=== PATIENT | male | born 1985 | race Two or more races ===

== ENCOUNTER 2019-03-28 01:57 | Emergency (ER) | payer OTHER ==
[~2019-03-28] VITALS: Ht 177.8 cm; Wt 108.9 kg
--- NOTE | 2019-03-28 02:15 | NUR ---
Patient ambulating with steady gait. A&O x4. c/o anxiety and panick attack that started "a few hours" SHRINKER. patient states he is having a bit of chest discomfort but none at this moment. Patient states that he took Valium 5mg 30 mins SHRINKER. smoked marijuana and drank a can of white claw 2 hours SHRINKER. Breathing even and unlabored. Denies any cough or SOB. denies any / GI discomfort. Speech is clear and able to make needs known / follow commands.
[2019-03-28] MEDS ORDERED: IV NORMAL SALINE 1000 ML BAG IV ONE (02:30)
--- NOTE | 2019-03-28 02:45 | NUR ---
Dr. Duncan at bedside for MSE
[2019-03-28 03:09] LABS: BASOPHILS # (AUTO) 0.1 K/uL (0.0-8.0); BASOPHILS % (AUTO) 0.7 % (0.0-2.0); EOSINOPHILS # (AUTO) 0.1 K/uL (0.0-0.7); EOSINOPHILS % (AUTO) 0.4 % (0.0-7.0); HEMATOCRIT 43.2 % (36.7-47.1); HEMOGLOBIN 15.2 g/dL (12.5-16.3); LYMPHOCYTES # (AUTO) 1.7 K/uL (20.0-40.0); LYMPHOCYTES % (AUTO) 11.7 % (20.5-51.5); MEAN CORPUSCULAR HEMOGLOBIN 31.3 uug (23.8-33.4); MEAN CORPUSCULAR HGB CONC 35 g/dL (32.5-36.3); MEAN CORPUSCULAR VOLUME 88.9 fL (73.0-96.2); MONOCYTES # (AUTO) 1.1 K/uL (2.0-10.0); NEUTROPHILS # (AUTO) 11.3 K/uL (1.8-8.9); NEUTROPHILS % (AUTO) 79.2 % (38.5-71.5); PLATELET COUNT (AUTO) 250 K/uL (152-348); RED BLOOD CELL COUNT(AUTO) 4.86 MIL/uL (4.06-5.63); WHITE BLOOD COUNT (AUTO) 14.2 K/uL (3.6-10.2)
[2019-03-28 03:24] LABS: BILIRUBIN,DIRECT 0.1 mg/dL (0.0-0.2); BILIRUBIN,TOTAL 0.3 mg/dL (0.2-1.0); POTASSIUM 3.8 mmol/L (3.5-5.1); TOTAL PROTEIN, SERUM 8.2 g/dL (6.4-8.2)
[2019-03-28 03:34] LABS: ETHANOL < 3 MG/DL (0-0)
[2019-03-28] MEDS ORDERED: LORAZEPAM 2 MG/1 ML VIAL IV ONE (04:00)
[2019-03-28] MEDS ORDERED: LORAZEPAM 2 MG/1 ML VIAL ONE (04:05)
[2019-03-28] MEDS ORDERED: IV NS 1000 ML 1,000 ML IV ONE (05:15)
--- NOTE | 2019-03-28 06:47 | NUR ---
IV removed. Catheter intact and site benign. Pressure and 4x4 gauze applied to site. No bleeding noted. Patient discharged to home in stable conditon. Written and verbal after care instructions given. Patient verbalizes understanding of instructions. Patient ambulating with steady gait
[2019-03-28 07:02] VITALS: BP 153/89
== END 2019-03-28 06:47 | disposition home or self-care (01) ==
LOC: ER 02:00
DX: R07.89 Other chest pain (principal); F12.10 Cannabis abuse, uncomplicated; R68.84 Jaw pain; M54.2 Cervicalgia
CPT/HCPCS: 36415; 71045; 80048; 80076; 83880; 84484 ×2; 85025; 85379; 93005 ×2; 96374; 99284; G0480; J2060; 70030-TC; A4663; J7030